=== PATIENT | male | born 1950 | race Caucasian/White ===

== ENCOUNTER 2017-12-27 08:26 | Day surgery (SDC) | payer MEDICARE, BC ==
[2017-12-27] MEDS ORDERED: PROPOFOL 500 MG/50 ML EMU IV ONE (08:32)
[2017-12-27] MEDS ORDERED: LIDOCAINE HCL 1% MPF SOL ONE (08:32)
[2017-12-27] MEDS ORDERED: FLEET ENEMA PR ONE (09:11)
[2017-12-27 11:17] VITALS: BP 109/70; PULSE 51; RESP 18; TEMP 97.6; O2SAT 95
== END 2017-12-27 12:00 | disposition home or self-care (01) | DRG 951 ==
LOC: SURG 08:26
PROVIDERS: ATTEND Surgery
DX: Z12.11 Encounter for screening for malignant neoplasm of colon (principal); D12.5 Benign neoplasm of sigmoid colon; E11.9 Type 2 diabetes mellitus without complications; R19.5 Other fecal abnormalities
CPT/HCPCS: 82962; A9270-GY; J2001; J2704